=== PATIENT | male | born 1970 | race Caucasian/White ===

== ENCOUNTER 2016-12-06 18:03 | Inpatient (IN) | payer OTHER ==
--- NOTE | 2016-12-06 18:41 | ED Physician Chart ---
ED Chief Complaint/HPI - Patient Information Date Seen:: 12/06/16 Time Seen:: 18:10 Chief Complaint:: Transient lightheadedness at about 4:30 pm today. History of Present Illness:: Brought in by private auto for the above reason. No chest pain or discomfort. No palpitation. Pt had transient nausea earlier. No vomiting. Pt checked his glucose which was 250 at the time. No fever. No chest pain or discomfort. No other bodily pain. Pt has been feeling anxious with hyperventilation. No dyspnea otherwise. No cough or wheezing. Allergies:: Allergies Allergy/AdvReac Type Severity Reaction Status Date / Time No Known Allergies Allergy Verified 01/11/16 17:26 Vitals:: Vital Signs - 8 hr 12/06/16 18:07 Temp 98.0 F HR 75 RR 20 BP 123/79 O2 Sat % 100 Historian:: Patient Family MD/PCP:: Dr. Platt. LMP:: N/A Review:: Nurse's Note Reviewed ED Review of Systems - Review of Systems General/Constitutional: No fever, No chills, No weight loss, No weakness, No edema, No loss of appetite Skin: No skin lesions, No rash, No bruising Head: No headache, Light headed Eyes: No loss of vision, No pain, No diplopia ENT: No earache, No nasal drainage, No sore throat, No tinnitus Neck: No neck pain, No swelling, No thyromegaly, No stiffness, No mass noted Cardio Vascular: No chest pain, No palpitations, No edema Pulmonary: No SOB, No cough, No wheezing GI: Nausea (transient.), No vomiting, No diarrhea, No pain G/U: No dysuria, No frequency, No hematuria Musculoskeletal: No bone or joint pain, No back pain, No muscle pain Endocrine: No polyuria, No polydipsia Psychiatric: Prior psych history, No depression, Anxiety, No suicidal ideation, No homicidal ideation, No auditory hallucination, No visual hallucination Hematopoietic: No bruising, No lymphadenopathy Allergic/Immuno: No urticaria, No angioedema Neurological: No syncope, No focal symptoms, No weakness, No paresthesia, No headache, No seizure, No dizziness, No confusion, No vertigo ED Past Medical History - Past Medical History Past Medical History: DM Family History: None Social History: Smoker (7 cigarets daily. Pt has been informed about health risks associated with chronic tobacco use and has been advised to quit. Pt has been encouraged to enroll in a smoking cessation program. Pt acknowledges understanding.), No Alcohol, No Drug Use, Single, Other (lives with his sister.) Surgical History: other (R shoulder surgery about 1 1/2 month ago.) Psychiatricy History: Other (h/o anxiety disorder.) Medication: Reviewed Family Medical History - Family Member Mother History Unknown: Yes Ethnicity: Living Status: Still Living Hx Family Cancer: No Hx Family Coronary Artery Disease: No Hx Family Congestive Heart Failure: No Hx Family Hypertension: No Hx Family Diabetes: Yes ED Physical Exam - Physical Examination General/Constitutional: Awake, Well-developed, well-nourished, Alert, Ambulatory Other Gen/Cons comments:: Pt appears to be anxious and at times hyperventilating. Head: Atraumatic Eyes: Lids, conjuctiva normal, PERRL, EOMI Skin: No rash, No ecchymosis, No lymphadenopathy ENMT: External ears, nose nl, Nasal exam nl, Lips, teeth, gums nl, Oropharynx nl Other ENMT comments:: Mucous membrane is slightly dry. Neck: Nontender, Full ROM w/o pain, No JVD, No nuchal rigidity, No mass, No stridor Respiratory: Nl effort/Exclusion, Clear to Auscultation, No Wheeze/Rhonchi/Rales Cardio Vascular: RRR, No murmur, gallop, rubs GI: No tenderness/rebounding/guarding, No organomegaly, Normal BS's, Nondistended, No McBurney tenderness Other GI comments:: Abdomen is soft. Extremities: No tenderness or effusion, Full ROM, normal strength in all extremities, No edema, Normal digits & nails Neuro/Psych: Alert/oriented (oriented x 3.), Normal gait, No focal deficits ED Labs/Radiology/EKG Results - Lab Results Results: Laboratory Tests 12/06/16 12/06/16 12/06/16 17:09 19:07 19:07 WBC 13.5 H D RBC 4.15 L Hgb 12.9 Hct 39.2 L MCV 94.3 MCH 31.1 H MCHC Differential 32.9 RDW 12.4 Plt Count 247 MPV 7.7 Neutrophils % 75.8 Lymphocytes % 17.9 L Monocytes % 5.6 Eosinophils % 0.6 Basophils % 0.1 PT 10.7 INR 1.03 PTT (Actin FS) 25.6 L Sodium Potassium Chloride Carbon Dioxide Anion Gap BUN Creatinine Est GFR ( Amer) Est GFR (Non-Af Amer) BUN/Creatinine Ratio Glucose Hemoglobin A1c % Whole Bld Lactic Acid 4.66 H* Calcium Total Bilirubin AST ALT Alkaline Phosphatase Creatine Kinase Troponin I Total Protein Albumin Globulin Albumin/Globulin Ratio Urine Source Urine Color Urine Clarity Urine pH Ur Specific Plessis Urine Protein Urine Glucose (UA) Urine Ketones Urine Blood Urine Nitrate Urine Bilirubin Urine Urobilinogen Ur Leukocyte Esterase Urine RBC Urine WBC Ur Epithelial Cells Urine Bacteria Urine Opiates Screen Urine Methadone Screen Ur Barbiturates Screen Ur Tricyclics Screen Ur Phencyclidine Scrn Amphetamines Screen U Methamphetamines Scrn U Benzodiazepines Scrn U Cocaine Metab Screen U Cannabinoids Screen 12/06/16 12/06/16 12/06/16 19:07 19:07 19:07 WBC RBC Hgb Hct MCV MCH MCHC Differential RDW Plt Count MPV Neutrophils % Lymphocytes % Monocytes % Eosinophils % Basophils % PT INR PTT (Actin FS) Sodium 120 L Potassium 3.5 Chloride 85 L Carbon Dioxide 21.0 Anion Gap 17.5 H BUN 19 Creatinine 1.4 H Est GFR ( Amer) > 60.0 Est GFR (Non-Af Amer) 58.2 BUN/Creatinine Ratio 13.6 Glucose 192 H Hemoglobin A1c % 6.6 H Whole Bld Lactic Acid Calcium 10.8 H Total Bilirubin 0.6 AST 16 ALT 12 Alkaline Phosphatase 33 L Creatine Kinase 75 Troponin I < 0.01 L Total Protein 7.7 Albumin 5.2 Globulin 2.5 Albumin/Globulin Ratio 2.1 H Urine Source Urine Color Urine Clarity Urine pH Ur Specific Plessis Urine Protein Urine Glucose (UA) Urine Ketones Urine Blood Urine Nitrate Urine Bilirubin Urine Urobilinogen Ur Leukocyte Esterase Urine RBC Urine WBC Ur Epithelial Cells Urine Bacteria Urine Opiates Screen Urine Methadone Screen Ur Barbiturates Screen Ur Tricyclics Screen Ur Phencyclidine Scrn Amphetamines Screen U Methamphetamines Scrn U Benzodiazepines Scrn U Cocaine Metab Screen U Cannabinoids Screen 12/06/16 12/06/16 19:20 19:20 WBC RBC Hgb Hct MCV MCH MCHC Differential RDW Plt Count MPV Neutrophils % Lymphocytes % Monocytes % Eosinophils % Basophils % PT INR PTT (Actin FS) Sodium Potassium Chloride Carbon Dioxide Anion Gap BUN Creatinine Est GFR ( Amer) Est GFR (Non-Af Amer) BUN/Creatinine Ratio Glucose Hemoglobin A1c % Whole Bld Lactic Acid Calcium Total Bilirubin AST ALT Alkaline Phosphatase Creatine Kinase Troponin I Total Protein Albumin Globulin Albumin/Globulin Ratio Urine Source MIDSTREAM Urine Color YELLOW Urine Clarity CLEAR Urine pH 5.5 Ur Specific Plessis <= 1.005 Urine Protein NEGATIVE Urine Glucose (UA) 100 H Urine Ketones TRACE Urine Blood NEGATIVE Urine Nitrate NEGATIVE Urine Bilirubin NEGATIVE Urine Urobilinogen 0.2 Ur Leukocyte Esterase NEGATIVE Urine RBC 0-1 Urine WBC 0-2 Ur Epithelial Cells OCCASIONAL Urine Bacteria OCCASIONAL Urine Opiates Screen NEGATIVE Urine Methadone Screen NEGATIVE Ur Barbiturates Screen NEGATIVE Ur Tricyclics Screen NEGATIVE Ur Phencyclidine Scrn NEGATIVE Amphetamines Screen NEGATIVE U Methamphetamines Scrn NEGATIVE U Benzodiazepines Scrn POSITIVE H U Cocaine Metab Screen NEGATIVE U Cannabinoids Screen NEGATIVE - Radiology Results Results: PCXR: Based on my interpretation, NAD. Official report is pending. - EKG Interpretations EKG Time:: 19:17 Rate & Rhythm: NSR with VR 64 Comments:: Probable LAE. NSSTT changes. youth nutritional monitor: NSR with VR 68. No ectopy. ED Septic Shock - . Is Septic Shock (SBP<90, OR Lactate>4 mmol\L) present?: No - <6hrs of presentation: Vital Signs: Vital Signs - 8 hr 12/06/16 18:07 Temp 98.0 F HR 75 RR 20 BP 123/79 O2 Sat % 100 ED Reassessment (Disposition) - Reassessment Reassessment:: 2014 Pt feels very anxious. Pt requests a medication to calm him. Pt states that he had Ativan in the past which he responded well when he was anxious. 2114 Pt has been repeatedly evaluated. Pt is now calm, and A and O x 3. Available results just became available. Available lab results and EKG findings have been reviewed with pt. Pt denies any fever or any bodily pain. No cough. No new complaint or findings. Management plan has been discussed. 2131 Case was discussed with Dr. Chen with pertinent H & P, EKG, and lab findings, etc. reviewed. He concurred with present management. Pt is to be admitted to ICU under his care. Reassessment Condition:: Improved - Diagnosis Diagnosis:: Leukocytosis with lactic acidosis. R/O sepsis. Hyponatremia with dehydration. Diabetes mellitus. Stable. Anxiety disorder, stable and improved. - Patient Disposition Admitted to:: ICU Admitting Medical Physician:: Gaurav Chen Time:: 21:40 Condition at Disposition:: Stable, Improved
[2016-12-06 19:13] LABS: % BASOPHILS 0.1 % (0.0-2.0); % EOSINOPHILS 0.6 % (0.0-5.0); % LYMPHOCYTES 17.9 % (20.0-50.0); % MONOCYTES 5.6 % (2.0-10.0); % NEUTROPHILS 75.8 % (40.0-80.0); HEMATOCRIT 39.2 % (41.0-60); HEMOGLOBIN 12.9 gm/dL (12-16); MEAN CELL VOLUME 94.3 fl (80-99); MEAN CORPUSCULAR HEMOGLOBIN 31.1 pg (26.0-30.0); MEAN CORPUSCULAR HGB CONC 32.9 pg (28.0-36.0); MEAN PLATELET VOLUME 7.7 fl; NEUTROPHILE ABSOLUTE 10.2 Th/cmm (1.8-8.0); PLATELET COUNT 247 Th/cmm (150-400); RED BLOOD COUNT 4.15 Mil/cmm (4.30-5.70); RED CELL DISTRIBUTION WIDTH 12.4 % (11.5-20.0)
[2016-12-06 19:17] LABS: WHITE BLOOD COUNT 13.5 Th/cmm (4.8-10.8)
[2016-12-06 19:26] LABS: INR 1.03 (0.5-1.4); PROTHROMBIN TIME (TEST) 10.7 SECONDS (9.5-11.5)
[2016-12-06 19:33] LABS: ALB/GLOB RATIO 2.1 (1.0-1.8); ALKALINE PHOSPHATASE 33 U/L (34-104); BILIRUBIN,TOTAL 0.6 mg/dL (0.3-1.0); BUN - UREA NITROGEN 19 mg/dL (7-25); BUN/CREATININE RATIO 13.6; CALCIUM SERUM 10.8 mg/dL (8.6-10.3); CHLORIDE 85 mEq/L (98-107); CREATININE - SERUM 1.4 mg/dL (0.7-1.3); GLUCOSE 192 mg/dL (70-105); POTASSIUM SERUM 3.5 mEq/L (3.5-5.1); SGOT 16 U/L (13-39); SGPT/ALT 12 U/L (7-52)
[2016-12-06 19:46] LABS: ANION GAP 17.5 (7.0-16.0); SODIUM SERUM 120 mEq/L (136-145)
[2016-12-06 20:32] LABS: URINE BILIRUBIN NEGATIVE (NEGATIVE); URINE BLOOD NEGATIVE (NEGATIVE); URINE GLUCOSE (UA) 100 mg/dL (NEGATIVE); URINE KETONE TRACE mg/dL (NEGATIVE); URINE PH 5.5 (4.6 - 8.0); URINE PROTEIN NEGATIVE (NEGATIVE); URINE UROBILINOGEN 0.2 E.U./dL (0.2 - 1.0)
[2016-12-06 20:39] LABS: URINE BACTERIA OCCASIONAL /hpf (NONE SEEN); URINE COLOR YELLOW; URINE EPITHELIAL CELLS OCCASIONAL /lpf (FEW); URINE RBC 0-1 /hpf (0-5); URINE WBC 0-2 /hpf (0-5)
[2016-12-06 20:40] LABS: AMPHETAMINE URINE NEGATIVE (NEGATIVE); BARBITURATES URINE NEGATIVE (NEGATIVE); METHADONE URINE NEGATIVE (NEGATIVE)
[2016-12-06] MEDS ORDERED: Sodium Chloride 0.9% 1,000 ML IV ONE (21:13)
[2016-12-06] MEDS ORDERED: cefTRIAXone 1 GM in Sodium Chloride 0.9% 50 ML IV ONE (21:31)
[2016-12-07 00:45] VITALS: BP 137/57
[2016-12-07 04:50] LABS: HEMOGLOBIN 12.4 gm/dL (12-16); RED CELL DISTRIBUTION WIDTH 12.5 % (11.5-20.0)
[2016-12-07 04:56] LABS: ANION GAP 12.8 (7.0-16.0); BUN - UREA NITROGEN 16 mg/dL (7-25); BUN/CREATININE RATIO 17.8; CALCIUM SERUM 9.3 mg/dL (8.6-10.3); CARBON DIOXIDE 22.9 mEq/L (21.0-31.0); CHLORIDE 95 mEq/L (98-107); CHOLESTEROL 87 mg/dL (<200); CREATININE - SERUM 0.9 mg/dL (0.7-1.3); GLUCOSE 112 mg/dL (70-105); MAGNESIUM 1.1 mg/dL (1.9-2.7); POTASSIUM SERUM 3.7 mEq/L (3.5-5.1); SODIUM SERUM 127 mEq/L (136-145); TRIGLYCERIDES 71 mg/dL (<150)
[2016-12-07 05:00] LABS: % EOSINOPHILS 2.8 % (0.0-5.0); % MONOCYTES 6.9 % (2.0-10.0); % NEUTROPHILS 66.3 % (40.0-80.0); HEMATOCRIT 36.9 % (41.0-60); MEAN CELL VOLUME 92.9 fl (80-99); MEAN CORPUSCULAR HEMOGLOBIN 31.1 pg (26.0-30.0); MEAN CORPUSCULAR HGB CONC 33.5 pg (28.0-36.0); NEUTROPHILE ABSOLUTE 9.6 Th/cmm (1.8-8.0); PLATELET COUNT 222 Th/cmm (150-400); RED BLOOD COUNT 3.97 Mil/cmm (4.30-5.70)
[2016-12-07 05:17] LABS: WHITE BLOOD COUNT 14.5 Th/cmm (4.8-10.8)
[2016-12-07] MEDS: INSULIN ASPART SLIDING SCALE 100 UNITS/ML UNIT SUBQ SCH ×3 (06:43→17:50)
[2016-12-07] MEDS: Sodium Chloride 0.9% 1,000 ML IV SCH ×2 (06:44→14:11)
--- NOTE | 2016-12-07 08:01 | Diagnostic Imaging Report ---
CHEST X-RAY: AP view INDICATION: Leukocytosis, lactic acidosis COMPARISON: Chest x-ray 01/06/2017 FINDINGS: There is no focal consolidation or pleural effusions The heart is normal in size. The osseous structures demonstrate no acute abnormalities. There appears to be external material overlying the right clavicular region. IMPRESSION: No focal airspace consolidation identified.
--- NOTE | 2016-12-07 10:34 | History & Physical ---
ADMIT DATE: 12/07/2016 CHIEF COMPLAINT: Weakness, lightheadedness and nervousness. HISTORY OF PRESENT ILLNESS: This 46-year-old gentleman with history of type 2 diabetes diagnosed about 2 years ago, history of recent right clavicular fracture repair about a month ago who presented to the ER with a 1-day history of the above-mentioned complaints. He apparently went to sauna given his anxiety and was there for about 3-1/2 hours not once, but in a span of a few hours, drunk Gatorade and water, went home and was watching TV when he started feeling dizzy, lightheaded and had abdominal pain associated with nausea, but no vomiting. He came to the ER with pertinent findings included a white count of 13.5, sodium 120, creatinine 1.4, lactic acid of 4.66 and a glucose level of 250. Given his lactic acid level, he was admitted overnight to the ICU for closed monitoring. Since then, he has had improvement of his symptoms, although he still feels somewhat nauseous. He denies any medical noncompliance. He denies any dietary noncompliance. Denies any ETOH, any IVDA. PAST MEDICAL HISTORY: He was diagnosed with diabetes about 2 years ago as noted above. He also had a double clavicular fracture secondary to a forklift accident about a year ago. He had a left clavicular fracture repair about a year ago and now as mentioned above, has just undergone the right clavicular fracture. The patient states that he has had some chronic anxiety issues since his surgery last month and he believes it was because he was given Percocet and believes that he did not wean himself off it appropriately. PAST SURGICAL HISTORY: As noted above. FAMILY HISTORY: Noncontributory. SOCIAL HISTORY: He smokes about a pack a week. He has been doing that for many years. No ETOH. He used to work as a printer operator. He has been stable for the last year or so and he lives at home with family. ALLERGIES: NKDA. OUTPATIENT MEDICATIONS: Glipizide 10 mg b.i.d. with meals and metformin 500 mg b.i.d. REVIEW OF SYSTEMS: CONSTITUTIONAL: He denies any fever, chills, any recent weight loss. CARDIOVASCULAR: No chest pain, palpitations. PULMONARY: No cough or phlegm production. GASTROINTESTINAL: Please refer to HPI. GENITOURINARY: Denies any dysuria or hematuria, any polyuria. NEUROLOGIC: No changes in vision, no headaches, no syncopal episodes. PHYSICAL EXAMINATION: VITAL SIGNS: Temperature 97.0, pulse is 50-54, respirations 16, blood pressure 130/64, satting 98% on room air. GENERAL: Well-developed, thin male, awake, alert and oriented x 3, not in acute distress. HEAD AND NECK: Normocephalic, atraumatic. Pupils reactive to light. CARDIOVASCULAR: Regular rate and rhythm without any murmurs. LUNGS: Clear to auscultation bilaterally. ABDOMEN: Soft, supple, nontender, nondistended, normoactive bowel sounds. EXTREMITIES: No edema in lower extremities. NEUROLOGIC: Grossly intact and nonfocal. He is able to move all 4 extremities with equal force and strength. Cranial nerves appear to be within normal limits. Sensation is intact. LABORATORY DATA: On admission, white count 13.5, H and H 12/39 with a platelet count of 247. Sodium 120, potassium 3.5, chloride 85, CO2 21, anion gap was 17, BUN 19, creatinine 1.4, glucose 192, A1c is 6.6, lactic acid level 4.66, calcium 10.8, alk phos 33. Troponins negative x 1 set. UA shows positive for glucose, negative for ketones. Toxicology was positive for benzos. DIAGNOSTICS: Chest x-ray shows no focal airspace consolidation. ASSESSMENT: 1. Dehydration, azotemia. 2. Hyponatremia, likely secondary to above. 3. Leukocytosis could be secondary to volume contraction. We will have to also rule out infectious etiology, although right now, there is no evidence of any source of infection. 4. Elevated lactic acid level, likely secondary to either dehydration or infection. 5. Diabetes mellitus, appears to be stable. 6. Anxiety disorder. PLAN: The patient has been admitted to ICU overnight and given his elevated lactic acid, he has been placed on normal saline at 125 mL per hour and empiric IV antibiotics, namely Rocephin 1 gram every 24 hours. He also is receiving lorazepam and his medications will be withheld for the time being. Clear liquids will be started and advanced as tolerated and once he tolerates his diet well, I will resume the glipizide, but we will withhold the Glucophage given his lactic acidemia. The patient will be transferred to telemetry given his improvement of his signs and symptoms. [facility]# [id number] HUGH
[2016-12-07] MEDS ORDERED: Probiotic Screen MC PRN (14:46)
[2016-12-07] MEDS ORDERED: cefTRIAXone 1 GM in Sodium Chloride 0.9% 50 ML IV SCH (21:00)
[2016-12-08] MEDS ORDERED: Lactobacillus Rhamnosus 10 Billion CFU Capsule PO SCH (09:00)
--- NOTE | 2016-12-08 17:10 | Discharge Summary ---
DATE OF DISCHARGE: 12/08/2016 ADMITTING DIAGNOSES: 1. Weakness. 2. Lightheadedness. 3. Dehydration. 4. Azotemia. 5. Hyponatremia. 6. Leukocytosis. 7. Elevated lactic acid level. SECONDARY DIAGNOSES: Include: 1. Diabetes mellitus type 2. 2. Anxiety disorder. 3. Possiible narcotic dependence. DISCHARGE DIAGNOSES: 1. Weakness-improved. 2. Lightheadedness. 3. Dehydration-improved. 4. Azotemia-improved. 5. Hyponatremia-improved. 6. Leukocytosis. 7. Elevated lactic acid level-improved. CONSULTANTS: There were no consultants used during this admission. MAJOR PROCEDURES: There were no major procedures done during this admission. BRIEF HOSPITAL COURSE: A 46-year-old gentleman who was diagnosed with type 2 diabetes about 2 years ago (no dm complications), and has had bilateral clavicular fracture repairs over the last year-the last one being about a month ago. He claims that he was taking Percocet for the pain and had become dependent on them. Therefore, he felt anxious when he started running out of them. Two days [employer], he started noticing weakness, lightheadedness and nervousness. Given his anxiety, he went to [facility], the day before admission, where he spent about 3-1/2 hours (within a span of few hours) drinking Gatorade and water and then while at home, he started feeling dizzy, lightheaded with abdominal pain associated with nausea, but no vomiting. Given his symptoms, he came to the ER where his pertinent findings included a white count of 13.5, a sodium of 128, creatinine 1.4, lactic acid of 4.66 and glucose of 250. Given his lactic acid level, he was admitted to the ICU and was given IV fluids and empiric IV antibiotics. His lactic acid level did respond by hospital day #1 and his sugars did remain stable throughout his hospital stay. His lactic acid went from 3.8-2.07. Given insurance issues, the patient was transferred to [place] for further management and care. MEDICATIONS ON DISCHARGE: Tylenol p.r.n. q. 4 p.r.n. for pain, Rocephin 1 g q.24h, ibuprofen 600 mg t.i.d. p.r.n. for pain, insulin sliding scale, lorazepam 1 mg q. 4 p.r.n. for anxiety. DISPOSITION: The patient was transferred to [place] for further management and care. [facility]# [id number] MTDD
== END 2016-12-07 21:00 | disposition short-term general hospital (02) | DRG 683 ==
LOC: ER 18:03 → MSI 22:00 → ICU 23:15 → MSI 12-07 19:16
PROVIDERS: ADMIT Internal Medicine; ATTEND Internal Medicine
DX: N17.9 Acute kidney failure, unspecified (principal); E87.1 Hypo-osmolality and hyponatremia; E87.2 Acidosis; D72.829 Elevated white blood cell count, unspecified; E11.9 Type 2 diabetes mellitus without complications; E86.0 Dehydration; F41.9 Anxiety disorder, unspecified; R53.1 Weakness; F17.210 Nicotine dependence, cigarettes, uncomplicated; Z83.3 Family history of diabetes mellitus; R42 Dizziness and giddiness
CPT/HCPCS: 36415-UA; 71010-TC; 80048-TC; 80053-TC; 80061-TC; 80307; 81001-TC; 82010-TC; 82550-TC; 82948-90; 83036-90; 83605; 83735-TC; 84484-TC; 85025-TC; 85610-TC; 93005; 96375; J0696; J1815; J2060; J7030; Z7610